=== PATIENT | female | born 1945 | race African-American/Black ===

== ENCOUNTER 2017-03-29 01:51 | Inpatient (IN) | payer OTHER ==
[~2017-03-29] VITALS: Ht 162.6 cm; Wt 89.8 kg
[~2017-03-29 01:51] MED LIST: ASPIRIN EC81 M1 PO; ATENOLOL25 M1 PO; ATORVASTATIN CA20 M1 PO; DYAZIDE 37.5-21 EACH PO; NIFEDIPINE ER30 M2 PO; PROAIR HFA8.5 GM INH
--- NOTE | 2017-03-29 10:35 | Admission Core Measures ---
Admission Meds I reviewed the following Meds: Current Medications Sig/Chiquita Start time Last Medication Dose Stop Time Status Admin Acetaminophen 975 MG ONCE 03/29 NR (Tylenol) 03/29 2359 Oxycodone HCl 10 MG ONCE 03/29 NR (Roxicodone) 03/29 2359 Acute Coronary Syndrome Inclusion Criteria ACS Diagnosis No Inpatient Core Measures LDL Reminder: If No, please order W/I first 24hr of stay Congestive Heart Failure Inclusion Criteria CHF Diagnosis No Cerebrovascular accident Inclusion Criteria CVA/TIA Diagnosis No Inpatient Core Measures Bedside Swallow Eval Reminder: If BSE failed, place ST order Antithrombotic Reminder: Order Antithrombotic Medication by end of day 2 Antithrombotic Reminder: Document Reason Antithrombotic Not ordered by end of day 2 AFIB/Flutter Reminder: If Present, add to problem list AFIB/Flutter Reminder: Order Anticoag Medication for pts with AFIB/Flutter Atherosclerosis Reminder: If Present, add to problem list LDL Reminder: If No, please order W/I first 24hr of stay PT Order Reminder: If No, please order Venous thromboembolism Inpatient Core Measures VTE Risk Factors: Age > 40, Surgery No [facility] VTE prophylaxis d/t No contraindications No VTE Pharm Prophylaxis d/t No contraindications Inclusion Criteria - Per Current guidelines, there needs to be overlap - treatment for the first 5 days of Warfarin therapy. - Parenteral Anticoagulation (IV or SC) needs to be - given along with Warfarin therapy. VTE Diagnosis No VTE Type NONE VTE Confirmed by (Test) NONE Problem List As ranked by this Provider includes Assessment & Plan 1. Status post total left knee replacement HOME MEDS Home Med List Albuterol Sulfate (Proair Hfa) 90 MCG HFA.AER.AD 2 PUF INH Q4-6 PRN PRN ASTHMA (Reported) Aspirin (Ecotrin*) 81 MG TABLET.DR 1 TAB PO DAILY PROPHO (Reported) Atenolol 25 MG TABLET 1 TAB PO DAILY HTN (Reported) Atorvastatin Calcium 20 MG TABLET 1 TAB PO DAILY CHOLESTEROL (Reported) Nifedipine (Nifedipine ER) 30 MG TAB.ER.24 1 TAB PO DAILY HTN (Reported) Triamterene/Hydrochlorothiazid (Dyazide 37.5-25 Capsule) 37.5 MG-25 MG CAPSULE 1 CAP PO DAILY HTN (Reported)
[2017-03-29] MEDS ORDERED: COLACE100 M1 PO (11:40)
[2017-03-29] MEDS ORDERED: ASPIRIN EC325 M2 PO (11:40)
[2017-03-29] MEDS ORDERED: MS CONTIN15 M2 PO (11:40)
[2017-03-29] MEDS ORDERED: DILAUDID2 M1 PO (11:40)
[2017-03-29] MEDS ORDERED: MIRALAX17 G1 PO (11:40)
--- NOTE | 2017-03-29 11:41 | Surgical Discharge Summary ---
Visit Information Visit Dates Admission Date: 03/29/17 Discharge Date: 03/31/17 History of Present Illness Chief Complaint: Left knee DJD/osteoarthritis, status post left total knee replacement Medical History Cardiovascular: hypertension, hyperlipidemia Respiratory: COPD Surgical History Pertinent Surgical History: knee replacement Review of Systems: See H&P Physical Exam: See H&P Hospital Course Course Attending Physician: XIMENA VILLEDA MD Primary Care Physician: DECLAN CLINE MD Hospital Course: Patient was admitted to [facility] for elective surgery on 03/29/2017 and underwent left total knee replacement. The patient tolerated the procedure well, without complications. The postoperative course remained uneventful. Pain was well controlled with oral pain medication, tolerated a regular diet, and voiding without difficulty. The patient was evaluated by physical therapy during admission, was deemed stable from a medical standpoint, and was discharged. Allergies: Coded Allergies: Penicillins (Severe, HIVES 03/24/17) Significant Procedures: 03/29/2017 left total knee replacement Disposition Summary Disposition Principal Diagnosis: Left knee DJD/osteoarthritis Additional Diagnosis: Hypertension, hyperlipidemia, COPD Discharge Disposition: SNF Discharge Instructions General Discharge Information Code Status: Full Code Patient's Diet: Heart healthy Patient's Activity: Avoid strenuous activity. You may ambulate as desired with rolling walker and progressed per PT recommendations. No driving while using narcotics and until cleared by M.D. Follow-Up Instructions/Appts: Incision: Dry dressing. May shower. No baths. No ointments of any kind. Ice as needed. Bowel regimen: Colace and or MiraLAX Weight-bearing as tolerated Follow-up with Dr. Villeda in 6 weeks. Call office for fevers greater than 101.5, excessive drainage or inability to bear weight on operative extremity. Visiting nurse will remove ortiz. Medications at Discharge Discharge Medications: Stop taking the following medications: Aspirin (Ecotrin*) 81 MG TABLET. ORAL DAILY Continue taking these medications: Nifedipine (Nifedipine ER) 30 MG TAB.ER.24 1 Tablet ORAL DAILY Triamterene/Hydrochlorothiazid (Dyazide 37.5-25 Capsule) 37.5 MG-25 MG CAPSULE 1 Capsule ORAL DAILY Atenolol (Atenolol) 25 MG TABLET 1 Tablet ORAL DAILY Atorvastatin Calcium (Atorvastatin Calcium) 20 MG TABLET 1 Tablet ORAL DAILY Albuterol Sulfate (Proair Hfa) 90 MCG HFA.AER.AD 2 Puff Inhale through mouth EVERY 4-6 HOURS NEEDED as needed for ASTHMA Start taking the following new medications: Docusate Sodium (Colace) 100 MG CAPSULE 1 Capsule ORAL TWICE DAILY Days = 7 No Refills Polyethylene Glycol 3350 (Miralax) 17 GRAM POWD.PACK 1 Packet ORAL DAILY Days = 7 No Refills Aspirin (Ecotrin*) 325 MG TABLET.DR 1 Tablet ORAL TWICE DAILY Days = 28 No Refills Morphine Sulfate (Ms Contin) 15 MG TABLET.ER 1 Tablet ORAL TWICE DAILY as needed for PAIN Qty = 5 No Refills Hydromorphone HCl (Dilaudid) 2 MG TABLET 1 Tablet ORAL TWICE DAILY as needed for PAIN Qty = 36 No Refills
--- NOTE | 2017-03-29 12:06 | Patient Discharge Instructions ---
Discharge Instructions General Discharge Information You were seen/treated for: Left knee DJD/osteoarthritis You had these procedures: Left total knee replacement Watch for these problems: Fever greater than 101, excessive drainage from the wound, inability to bear weight on the operative side Call Surgeon to remove: Jovanni (2 weeks postop if in place) Do not soak the wound: Yes Diet Continue normal diet: Yes Recommended Diet: Heart Healthy Activity Full Activity/No Limits: No Activity Self Limited: Yes Pounds, do NOT lift more than: 5 Activity Limited to: Weight bear as tolerated Other activity limits: Avoid strenuous activity. You may ambulate as desired with rolling walker and progressed per PT recommendations. No driving while using narcotics and until cleared by [facility] Acute Coronary Syndrome Inclusion Criteria At DC or during hospital stay patient has or had the following: ACS DIAGNOSIS No Discharge Core Measures Meds if any: Prescribed or Continued at Discharge Meds if any: NOT Prescribed or Continued at Discharge Congestive Heart Failure Inclusion Criteria At DC or during hospital stay patient has or had the following: CHF DIAGNOSIS No Discharge Core Measures Meds if any: Prescribed or Continued at Discharge Meds if any: NOT Prescribed or Continued at Discharge Cerebrovascular accident Inclusion Criteria At DC or during hospital stay patient has or had the following: CVA/TIA Diagnosis No Discharge Core Measures Meds if any: Prescribed or Continued at Discharge Meds if any: NOT Prescribed or Continued at Discharge Venous thromboembolism Inclusion Criteria VTE Diagnosis No VTE Type NONE VTE Confirmed by (Test) NONE Discharge Core Measures - Per Current guidelines, there needs to be overlap - treatment for the first 5 days of Warfarin therapy. - If discharged on Warfarin prior to 5 days of - overlap therapy, the patient will need to be - assessed for post discharge needs including - *Post discharge parental anticoagulation - *Warfarin and/or parental anticoagulation education - *Follow up date to check INR post discharge At least 5 days overlap therapy as Inpatient No Meds if any: Prescribed or Continued at Discharge Note: Overlap Therapy is Warfarin and Anticoagulant Meds if any: NOT Prescribed or Continued at Discharge
[2017-03-29 16:05] VITALS: BP 112/88
--- NOTE | 2017-03-29 16:05 | NUR ---
AT THIS TIME PT ADMITTED TO ROOM , PT A/OX3, ON 2LNC, VSS, DENIES PAIN, DENIES N/V, DENIES CP, DENIES SOB, PT DSG TO L KNEE C/D/I, ONQ PUMP AT 7CM AND 10ML/HR, PT DTV BETWEEN 2144 AND 2344, OREINTED TO ROOM AND CALL MOORE, BED IN LOWEST AND LOCKED POSITION, PT FOUND CELL PHONE, WILL CONT TO MONITOR
--- NOTE | 2017-03-29 16:32 | Operative Report ---
Operative/Inv Procedure Report Surgery Date: 03/29/17 Name of Procedure: Left total knee replacement Pre-Operative Diagnosis: Primary left knee DJD Post-Operative Diagnosis: Primary left knee DJD Estimated Blood Loss: 50ml to 100ml Surgeon/Frame Gate Mortiser Operator: RONAL BARLOW,XIMENA Chavira Anesthesia: block Operative/Procedure Note Note: Description of Procedure: The patient was taken to the operating room and positively identified. After induction of spinal anesthesia and administration of appropriate pre-operative antibiotics, the patient was positioned supine on the operating room table and all bony prominences were well padded. A well-padded pneumatic tourniquet was placed on the left upper thigh. After performing a surgical timeout, the left lower extremity was prepped and draped in the usual sterile fashion. After exsanguination with Esmarch the tourniquet was inflated to 250mm of mercury. A standard medial parapatellar approach was made to the knee. This was carried down through skin and subcutaneous tissue to the level of the fascia. Meticulous hemostasis was maintained with Bovie electrocautery. The extensor mechanism and patellar retinaculum were opened sharply and the patella was everted. The infrapatellar fat was resected in order to improve exposure. Osteophytes were trimmed from the patella and femoral condyles and the patella was re-everted and tucked laterally. A medial release was performed and the cruciate ligaments were resected. The tibia was then subluxed anteriorly. Utilizing the appropriate extra-medullary guide, the proximal tibia was trimmed perpendicular to the long axis of the tibial shaft. Attention was then turned to the femur. After opening the medullary canal, the distal femoral cut was made in 6 degrees of valgus utilizing the appropriate intra-medullary guide. The extension gap was checked and found to be appropriate. The femur was then sized and the remainder of the femoral cuts were made with a size 3 4-in-1 femoral cutting guide. The flexion gap was checked and found to be symmetric and appropriate. The knee was then trialed with a size 3 femoral component, a size 4 tibial component and a size 9 mm polyethylene insert. The patella was trimmed to accept an A 35 patella. This yielded excellent range of motion, stability and patellar tracking. All trial components were removed and the knee was copiously irrigated with sterile saline. All components were cemented into place with Allegra Simplex cement. All the components were of the [place] [employer] knee system of the above stated sizes. The knee was again irrigated after cementation. The extensor mechanism and patellar retinaculum were repaired using interrupted #1 vicryl suture. The skin was re-approximated with 2-0 vicryl and closed with ortiz. A sterile dressing was applied, the tourniquet was deflated, the patient was awakened and taken to the recovery room in satisfactory condition.
--- NOTE | 2017-03-29 16:33 | PN- Orthopedic ---
Subjective Subjective: Post op check Awake, alert No complaints at this time Pain is well controlled, no nausea Objective Vital Signs and I&Os VSS, afebrile Has not voided spontaneously yet General: alert and oriented times three Chest: clear anteriorly bilaterally, RRR Abd: soft, good bs Ext: warm, positive sensate, good strenght BLE,no calf tenderness, On Q in place wound: dressed/dry, ice pack in place Current Medications: Current Medications Sig/Chiquita Start time Last Medication Dose Route Stop Time Status Admin Acetaminophen 0 .STK-MED ONE 03/29 1016 DC PO Acetaminophen 975 MG ONCE 03/29 0000 NR PO 03/29 2359 Oxycodone HCl 0 .STK-MED ONE 03/29 1016 DC PO Oxycodone HCl 10 MG ONCE 03/29 0000 NR PO 03/29 2359 Ropivacaine 500 ML ONCE ONE 03/29 1345 AC ON-Q Ball 1 BAG INJ 03/31 1544 Vancomycin HCl 1,500 MG ONCE ONE 03/29 1130 DC Sodium Chloride 250 ML IV 03/29 1259 Assessment/Plan Assessment/Plan 71 yo female s/p L TKR pain management On Q ASA 325mg po bid for dvt ppx pt - WBAT plan to dc to rehab once cleared by PT Core Measures/Miscellaneous Venous Thromboembolism VTE Risk Factors: Age > 40, Surgery VTE Contraindications: No Contraindications VTE Diagnosis: No VTE Type: NONE VTE Confirmed by (Test): NONE Beta Jaylen Is Beta Jaylen a Home Med? Yes If Yes, Was This Ordered Today? Yes Antibiotics Is Patient on Antibiotics? Yes If Yes: prophylaxis (24 hrs post op)
[2017-03-29 18:00] VITALS: BP 118/78
[2017-03-29 20:00] VITALS: BP 115/70
[2017-03-29 22:39] VITALS: BP 112/61
[2017-03-30] VITALS (8 sets, daily range): BP systolic 100–154; BP diastolic 60–80
--- NOTE | 2017-03-30 07:19 | PN- Orthopedic ---
Subjective Subjective: The patient was seen this morning postoperatively day #1. She reports her pain is under adequate control but no other complaints at the current time. She is eager to with physical therapy however she is able to get a bed last night to go use the bathroom. Objective Vital Signs and I&Os Vital Signs Date Time Temp Pulse Resp B/P B/P Pulse O2 O2 Flow FiO2 Mean Ox Delivery Rate 03/30 0613 98.6 57 18 126/72 100 Nasal 2.0L Cannula 03/30 0333 97.8 65 18 120/80 95 Nasal 2.0L Cannula 03/30 0113 98.7 80 18 100/60 92 Nasal 2.0L Cannula 03/30 0000 Nasal 2.0L Cannula 03/29 2239 98.0 62 18 112/61 94 Nasal 2.0L Cannula 03/29 2000 98.2 64 18 115/70 96 Nasal 2.0L Cannula 03/29 1841 60 106/70 / 1800 97.6 53 18 118/78 95 Nasal 2.0L Cannula 03/29 1605 Nasal 2.0L Cannula 03/29 1605 97.8 66 18 112/88 95 Nasal 2.0L Cannula Intake & Output 03/30 0800 05/ 0000 05/ 1600 05/ 0800 05/ 0000 04 1600 Intake Total 1200 1400 Output Total 600 500 Balance 600 900 Intake, IV 600 600 Intake, Oral 600 800 Output, Urine 600 500 Patient 198 lb Weight Weight Reported by Patient Measurement Method Physical Exam: Gen.: Alert and in no obvious distress Skin: Warm and dry Extremities: Bilateral lower extremities are warm without calf tenderness or significant edema. Gross motor and sensory are intact. Left knee surgical dressing is clean, dry, and intact. His On-Q pain pump [address] Assessment/Plan Assessment/Plan Assessment: 71-year-old female status post left total knee arthroplasty postoperative day #1. The patient is progressing as expected and her pain is under adequate control. Plan: Hep-Lock IV fluids Follow-up morning laboratory studies Out of bed with physical therapy GI and DVT prophylaxis Continue current pain regiment Keep On-Q pain pump in place First surgical dressing tomorrow Total respiratory care for incentive spirometry and wean O2 needs Core Measures/Miscellaneous Venous Thromboembolism VTE Risk Factors: Age > 40, Surgery VTE Contraindications: No Contraindications VTE Diagnosis: No VTE Type: NONE VTE Confirmed by (Test): NONE Beta Jaylen Is Beta Jaylen a Home Med? Yes If Yes, Was This Ordered Today? Yes Antibiotics Is Patient on Antibiotics? No
[2017-03-30 08:10] LABS: ABSOLUTE BASOPHIL COUNT 0 /CUMM (0.0-0.2); ABSOLUTE EOSINOPHIL COUNT 0 /CUMM (0.0-0.7); ABSOLUTE GRANULOCYTE CT 10.4 /CUMM (1.4-6.5); ABSOLUTE LYMPH COUNT 1.4 /CUMM (1.2-3.4); ABSOLUTE MONOCYTE COUNT 0.7 /CUMM (0.10-0.60); BASOPHIL % 0.2 % (0.0-2.0); EOSINOPHIL % 0.1 % (0-5); HEMATOCRIT 36.2 % (37-47); MEAN CORPUSCULAR HGB 28.5 PG (27.0-31.0); MEAN CORPUSCULAR HGB CONC 32.4 G/DL (33.0-37.0); MEAN CORPUSCULAR VOLUME 87.8 FL (81.0-99.0); MEAN PLATELET VOLUME 8.2 FL (7.4-10.4); PLATELET COUNT 272 /CUMM (130-400); RBC DISTRIBUTION WIDTH 14.5 % (11.5-14.5); RED BLOOD CELL CT 4.12 /CUMM (4.20-5.40); WHITE BLOOD CELL COUNT 12.4 /CUMM (4.8-10.8)
[2017-03-30 09:44] LABS: GRANULOCYTE % 83.2 % (42.2-75.2)
[2017-03-31 06:58] VITALS: BP 126/70
--- NOTE | 2017-03-31 07:19 | PN- Orthopedic ---
See Addendum Subjective Subjective: POD#2 S/P LEFT TKA COMFORTABLE NO MAJOR COMPLAINTS DENIES CP, SOB, NO N+V WITH DIET Objective Vital Signs and I&Os Vital Signs Date Time Temp Pulse Resp B/P B/P Pulse O2 O2 Flow FiO2 Mean Ox Delivery Rate 05/ 2215 97.9 69 19 150/80 93 Room Air 05/ 1924 92 Room Air 05/ 1726 97.9 69 19 154/80 91 Room Air 05/ 1300 98.2 62 20 124/70 94 Room Air 05/ 1152 Room Air Room Air 05/ 1102 Room Air Room Air 05/ 1100 98.1 66 20 131/80 93 Nasal 2.0L Cannula / 0905 78 150/70 05/02 0905 78 150/70 05/02 0851 98.2 55 20 150/68 97 Nasal 2.0L Cannula Intake & Output 05/ 0800 05/03 0000 05/02 1600 05/02 0800 05/02 0000 05/ 1600 Intake Total 132 386 0510 1200 1400 Output Total 500 1200 600 500 Balance -380 340 75 600 900 Intake, IV 75 600 600 Intake, Oral 481 210 0853 600 800 Output, Urine 500 1200 600 500 Patient 198 lb Weight Weight Reported by Patient Measurement Method Physical Exam: CV: RRR LUNGS: CLEAR ABD: SOFT, +BS EXT: DRSG CHANGED, WOUND C/D/I NO CALF TENDERNESS BIALT DISTAL CMS INTACT Assessment/Plan Assessment/Plan ORTHO STABLE PLAN CONT OOB WITH PT HOME V REHAB Core Measures/Miscellaneous Venous Thromboembolism VTE Risk Factors: Age > 40, Surgery VTE Contraindications: No Contraindications VTE Diagnosis: No VTE Type: NONE VTE Confirmed by (Test): NONE Beta Jaylen Is Beta Jaylen a Home Med? Yes If Yes, Was This Ordered Today? Yes Antibiotics Is Patient on Antibiotics? No
[2017-03-31 15:24] VITALS: BP 126/70
== END 2017-03-31 15:45 | DRG 470 ==
LOC: 2NB 01:51 → SDA 01:51 → ENRESERV 15:29 → 2NB 16:08 → ENPENDDIS 03-31 12:24 → 2NB 03-31 15:45
PROVIDERS: Physician Assistant Surgical; ADMIT Orthopaedic Surgery
PROC: 0SRD0J9 Replacement of Left Knee Joint with Synthetic Substitute, Cemented, Open Approach (ICD-10-PCS; principal; 2017-03-29)
DX: M17.12 Unilateral primary osteoarthritis, left knee (principal); Z68.42 Body mass index [BMI] 45.0-49.9, adult; E11.9 Type 2 diabetes mellitus without complications; J44.9 Chronic obstructive pulmonary disease, unspecified; E66.9 Obesity, unspecified; I25.10 Atherosclerotic heart disease of native coronary artery without angina pectoris; I49.3 Ventricular premature depolarization; I10 Essential (primary) hypertension; Z87.891 Personal history of nicotine dependence
CPT/HCPCS: 2NBP; 82436; 87086; 88305; 97110-GO; 97116-GO; 97161-GP; 97530-GO; C1713; J0690; J1100; J1885; J2405; J2795; J3370; J3490; J7040; J7042